=== PATIENT | male | born 1935 | race Caucasian/White ===

== ENCOUNTER → 2017-09-11 | Outpatient (CLI) | payer MEDICARE ==
[~2017-09-11] MED LIST: ASPI-555 PO; MIRALAX PO; MULT-1296 PO; PRAV40TA3 PO; REGADENOSON 0.4 MG/5 ML PF SYG IVP SCH; TAMS-1 PO
== END | disposition home or self-care (01) ==
LOC: SHCH 08:52
PROVIDERS: ATTEND Internal Medicine Cardiovascular Disease
DX: R94.31 Abnormal electrocardiogram [ECG] [EKG] (principal); R07.9 Chest pain, unspecified
CPT/HCPCS: 78452; 93017; 96374; A9500 ×2; J2785

== ENCOUNTER 2017-10-17 05:36 | Day surgery (SDC) | payer MEDICARE ==
[2017-10-15 10:45] LABS: BASOPHILS % (AUTO) 0.5 % (0.0-5.0); EOSINOPHILS % (AUTO) 0.3 % (0.0-8.0); HEMATOCRIT 44.6 % (42-54); LYMPHOCYTES % (AUTO) 30.5 % (21.0-51.0); MEAN CORPUSCULAR HEMOGLOBIN 33.6 pg (27.0-33.0); MEAN CORPUSCULAR HGB CONC 34.1 g/dL (32.0-36.0); MEAN CORPUSCULAR VOLUME 98.5 fL (79-99); MONOCYTES % (AUTO) 7.3 % (3.0-13.0); NEUTROPHILS % (AUTO) 61.4 % (40.0-77.0); PLATELET COUNT (AUTO) 164 K/uL (130-400); RED BLOOD CELL COUNT(AUTO) 4.53 MIL/uL (4.50-6.20); WHITE BLOOD COUNT (AUTO) 7.9 K/uL (4.8-10.8)
[2017-10-15 10:55] VITALS: BP 161/86
[2017-10-15 10:59] LABS: CREATININE 0.9 mg/dL (0.5-1.5)
[2017-10-15 11:26] LABS: INR 0.91 (0.85-1.15); PARTIAL THROMBOPLASTIN TIME 26.6 SEC (26.3-35.5); PROTHROMBIN TIME 9.6 SEC (9.6-11.6)
[2017-10-15 11:41] LABS: APPEARANCE,URINE Clear (CLEAR); BILIRUBIN,URINE Negative (NEGATIVE); COLOR,URINE Yellow (YELLOW); GLUCOSE, URINE (UA) Negative (NEGATIVE); KETONES,URINE Negative (NEGATIVE); LEUKOCYTE ESTERASE ,URINE Negative (NEGATIVE); NITRATE,URINE Negative (NEGATIVE); OCCULT BLOOD,URINE Negative (NEGATIVE); PROTEIN,URINE Negative (NEGATIVE)
[~2017-10-17] VITALS: Ht 172.7 cm; Wt 89.4 kg
[2017-10-17] VITALS (14 sets, daily range): BP systolic 108–171; BP diastolic 38–89
[~2017-10-17 05:36] MED LIST changes: +ACETAMINOPHEN 325 MG TAB PO PRN; -REGADENOSON 0.4 MG/5 ML PF SYG IVP SCH; +SODIUM CHLORIDE 0.9% 500ML 500 ML IV SCH
[2017-10-17] MEDS ORDERED: SODIUM CHLORIDE 0.9% 1000ML 1,000 ML IV ONE (06:17)
[2017-10-17] MEDS ORDERED: HEPARIN SODIUM 1000UNIT/ML 10ML VIAL ONE (09:06)
[2017-10-17] MEDS ORDERED: NITROGLYCERIN 5 MG/ML 10 ML VIAL IV ONE (09:06)
[2017-10-17] MEDS ORDERED: LIDOCAINE HCL-MPF 2% 5ML VIAL ONE (09:13)
[2017-10-17] MEDS ORDERED: MEPERIDINE-PF 25 MG/ML SYG ONE ×2 (09:23→09:35)
[2017-10-17] MEDS ORDERED: MIDAZOLAM HCL 1 MG/ML 2ML VIAL ONE ×2 (09:23→09:35)
[2017-10-17] MEDS ORDERED: SODIUM CHLORIDE 0.9% 1000ML 1,000 ML IV SCH (10:07)
[2017-10-17] MEDS ORDERED: ACETAMINOPHEN-CODEINE 300/30MG TAB PO PRN (10:15)
[2017-10-17] MEDS ORDERED: ISOVUE-370 50ML VIAL IV ONE (12:00)
[2017-10-17] MEDS ORDERED: ISOVUE-300 100 ML VIAL IV ONE (12:00)
== END 2017-10-17 16:07 | disposition home or self-care (01) ==
LOC: DAH 05:36
PROVIDERS: ATTEND Internal Medicine Cardiovascular Disease
DX: I25.110 Atherosclerotic heart disease of native coronary artery with unstable angina pectoris (principal); K21.9 Gastro-esophageal reflux disease without esophagitis; E78.5 Hyperlipidemia, unspecified; I44.7 Left bundle-branch block, unspecified; Z79.82 Long term (current) use of aspirin; Z79.899 Other long term (current) drug therapy; Z98.890 Other specified postprocedural states; Z82.49 Family history of ischemic heart disease and other diseases of the circulatory system; Z80.43 Family history of malignant neoplasm of testis
CPT/HCPCS: 36415; 71045; 80048; 81003; 85025; 85610; 85730; 93005; 93458; 99156; 99157; A4606; C1760; C1894; J1644; J2175 ×2; J2250 ×2; J3490 ×2; J7030; Q9967 ×2

== ENCOUNTER → 2018-10-05 | Outpatient (CLI) | payer MEDICARE ==
[~2018-10-05] MED LIST changes: -ACETAMINOPHEN 325 MG TAB PO PRN; -SODIUM CHLORIDE 0.9% 500ML 500 ML IV SCH
== END | disposition home or self-care (01) ==
LOC: SHCH 08:56
PROVIDERS: ATTEND Internal Medicine Cardiovascular Disease
DX: I08.3 Combined rheumatic disorders of mitral, aortic and tricuspid valves (principal)
CPT/HCPCS: 93306

== ENCOUNTER 2018-10-16 09:17 | Observation (INO) | payer MEDICARE ==
[2018-10-14 12:50] VITALS: BP 165/80
[2018-10-14 13:14] LABS: BASOPHILS % (AUTO) 0.3 % (0.0-5.0); EOSINOPHILS % (AUTO) 0.1 % (0.0-8.0); HEMATOCRIT 42.8 % (42-54); LYMPHOCYTES % (AUTO) 36.4 % (21.0-51.0); MEAN CORPUSCULAR HEMOGLOBIN 34.6 pg (27.0-33.0); MEAN CORPUSCULAR HGB CONC 33.6 g/dL (32.0-36.0); MONOCYTES % (AUTO) 7.6 % (3.0-13.0); NEUTROPHILS % (AUTO) 55.6 % (40.0-77.0); NUCLEATED RED BLOOD CELLS 0.1 % (0.0-0.19); PLATELET COUNT (AUTO) 177 K/uL (130-400); RED BLOOD CELL COUNT(AUTO) 4.16 MIL/uL (4.50-6.20); RED CELL DISTRIBUTION WIDTH 14.8 % (11.0-15.5); WHITE BLOOD COUNT (AUTO) 9.9 K/uL (4.8-10.8)
[2018-10-14 13:23] LABS: CREATININE 0.9 mg/dL (0.5-1.5); POTASSIUM 4.3 mmol/L (3.5-5.1)
[2018-10-14 13:27] LABS: INR 0.9 (0.85-1.15); PARTIAL THROMBOPLASTIN TIME 27.2 SEC (26.3-35.5); PROTHROMBIN TIME 9.5 SEC (9.6-11.6)
[2018-10-16] VITALS (8 sets, daily range): BP systolic 104–173; BP diastolic 62–90
[~2018-10-16] VITALS: Ht 174 cm; Wt 87.8 kg
[~2018-10-16 09:17] MED LIST changes: +CEFAZOLIN SODIUM 1 GM VIAL IVP SCH; +FINA5TAB41 PO; +SODIUM CHLORIDE 0.9% 1000ML 1,000 ML IV SCH; +[UNRECOGNIZED DRUG - OTHER] PO
--- NOTE | 2018-10-16 10:10 | NUR ---
PROCEDURE PT HERE FOR BI-V AICD INSERTION. REDNESS NOTED TO FACE. STATES HE IS VERY NERVOUS. AT BEDSIDE. DENIES ANY SOB, PAIN. AT THIS TIME.
[2018-10-16] MEDS ORDERED: CEFAZOLIN SODIUM 1 GM VIAL ONE (17:41)
[2018-10-16] MEDS ORDERED: IODIXANOL 320 MG/ML 100 ML VIAL ONE (17:41)
[2018-10-16] MEDS ORDERED: LIDOCAINE HCL 1% MDV 50ML VIAL ONE (17:43)
[2018-10-16] MEDS ORDERED: MEPERIDINE-PF 25 MG/ML SYG ONE ×3 (18:22→19:10)
[2018-10-16] MEDS ORDERED: MIDAZOLAM HCL 1 MG/ML 2ML VIAL ONE ×3 (18:22→19:10)
[2018-10-16] MEDS ORDERED: OCTYL 2-CYANOACRYLATE 1 EACH TP ONE (19:32)
[2018-10-16] MEDS ORDERED: ONDANSETRON HCL 4 MG/2 ML VIAL IV PRN (20:00)
[2018-10-16] MEDS ORDERED: FINASTERIDE 5 MG TABLET PO SCH (21:00)
--- NOTE | 2018-10-16 21:00 | NUR ---
LAWRENCE Butt was rounding in the unit and notified about pt just arrived from cathlab S/P Biventricular AICD placement per Dr. Miller.Pt. stable at this time.Will see pt later he said.
[2018-10-16] MEDS: CARVEDILOL 3.125 MG TABLET PO SCH (21:46)
[2018-10-16] MEDS: SPIRONOLACTONE 25 MG TAB PO SCH (21:46)
--- NOTE | 2018-10-16 22:00 | NUR ---
Pt. instructed about left arm precaution ,to avoid raising arm beyond shoulder.He demonstrated understanding,ice pack applied.Pt. instructed to use call light for assistance. to bedside.
[2018-10-16] MEDS ORDERED: ACETAMINOPHEN 325 MG TAB PO PRN (23:00)
[2018-10-16] MEDS ORDERED: NITROGLYCERIN 0.4 MG SL TAB SL PRN (23:00)
[2018-10-17] MEDS: ACETAMINOPHEN 325 MG TAB PO PRN ×2 (01:20→06:03)
[2018-10-17 04:00] LABS: BASOPHILS % (AUTO) 0.9 % (0.0-5.0); EOSINOPHILS % (AUTO) 0.3 % (0.0-8.0); HEMATOCRIT 38.8 % (42-54); LYMPHOCYTES % (AUTO) 28.1 % (21.0-51.0); MEAN CORPUSCULAR HEMOGLOBIN 35.9 pg (27.0-33.0); MEAN CORPUSCULAR HGB CONC 34.5 g/dL (32.0-36.0); MEAN CORPUSCULAR VOLUME 104.2 fL (79-99); NEUTROPHILS % (AUTO) 62.7 % (40.0-77.0); NUCLEATED RED BLOOD CELLS 0.1 % (0.0-0.19); PLATELET COUNT (AUTO) 132 K/uL (130-400); RED BLOOD CELL COUNT(AUTO) 3.72 MIL/uL (4.50-6.20); RED CELL DISTRIBUTION WIDTH 14.8 % (11.0-15.5); WHITE BLOOD COUNT (AUTO) 10.4 K/uL (4.8-10.8)
[2018-10-17 04:06] LABS: CREATININE 0.9 mg/dL (0.5-1.5); MAGNESIUM 2.1 mg/dL (1.80-2.40); POTASSIUM 3.9 mmol/L (3.5-5.1)
[2018-10-17 04:15] VITALS: BP 122/74
[2018-10-17] MEDS: CEFAZOLIN SODIUM 1 GM VIAL IVP SCH ×2 (04:21→11:30)
[2018-10-17] MEDS ORDERED: CARV3.1262 PO (07:22)
[2018-10-17] MEDS ORDERED: FURO20TA6 PO (07:22)
[2018-10-17] MEDS ORDERED: LOSA50TA2 PO (07:22)
[2018-10-17] MEDS ORDERED: SPIR25TA PO (07:22)
[2018-10-17 07:36] VITALS: BP 156/84
[2018-10-17] MEDS ORDERED: POLYETHYLENE GLYCOL 3350 17 GM POWD.PACK PO SCH (09:00)
[2018-10-17] MEDS ORDERED: IRON PO SCH (09:00)
[2018-10-17] MEDS ORDERED: FOLIC ACID PO SCH (09:00)
[2018-10-17] MEDS ORDERED: FUROSEMIDE 20 MG TABLET PO SCH (09:00)
[2018-10-17] MEDS ORDERED: ASPIRIN 81MG TAB.CHEW PO SCH (09:00)
[2018-10-17] MEDS ORDERED: TAMSULOSIN HCL 0.4 MG CAP.ER.24H PO SCH (09:00)
[2018-10-17] MEDS ORDERED: MULTIVITAMIN PO SCH (09:00)
[2018-10-17] MEDS ORDERED: FAMOTIDINE 20MG TAB 20 MG TAB PO SCH (09:00)
[2018-10-17] MEDS ORDERED: [UNRECOGNIZED DRUG - OTHER] PO PRN (09:00)
[2018-10-17] MEDS ORDERED: LOSARTAN 50 MG TABLET PO SCH (09:00)
[2018-10-17] MEDS: CARVEDILOL 3.125 MG TABLET PO SCH (09:51)
[2018-10-17] MEDS: SPIRONOLACTONE 25 MG TAB PO SCH (09:52)
[2018-10-17 11:18] VITALS: BP 97/61
[2018-10-17] MEDS ORDERED: Pravastatin Sodium 40 MG PO SCH (21:00)
== END 2018-10-17 13:34 | disposition home or self-care (01) ==
LOC: DAH 09:17 → 2AH 09:18 → DAH 09:18
PROVIDERS: ADMIT Internal Medicine; ATTEND Internal Medicine
DX: I42.0 Dilated cardiomyopathy (principal); I44.7 Left bundle-branch block, unspecified; I95.9 Hypotension, unspecified; E78.5 Hyperlipidemia, unspecified; I25.10 Atherosclerotic heart disease of native coronary artery without angina pectoris; I50.42 Chronic combined systolic (congestive) and diastolic (congestive) heart failure; K21.9 Gastro-esophageal reflux disease without esophagitis; N40.0 Benign prostatic hyperplasia without lower urinary tract symptoms; G20 Parkinson's disease; Z83.3 Family history of diabetes mellitus; Z96.653 Presence of artificial knee joint, bilateral; Z95.810 Presence of automatic (implantable) cardiac defibrillator; Z82.49 Family history of ischemic heart disease and other diseases of the circulatory system; Z79.899 Other long term (current) drug therapy
CPT/HCPCS: 33225; 33249; 36415 ×2; 71046; 80048 ×2; 83735; 85025 ×2; 85610; 85730; 93005 ×2; 96374; 96376; A4606; C1769 ×2; C1882; C1894; C1895 ×2; C1900; G0378 ×18; J0690 ×3; J2175 ×3; J2250 ×3; J3490; J7030; Q9967; 99156; 99157

== ENCOUNTER → 2019-07-16 | Outpatient (CLI) | payer MEDICARE ==
[~2019-07-16] MED LIST changes: +CARV3.1262 PO; -CEFAZOLIN SODIUM 1 GM VIAL IVP SCH; +FURO20TA6 PO; +LOSA50TA2 PO; -SODIUM CHLORIDE 0.9% 1000ML 1,000 ML IV SCH; +SPIR25TA PO
== END | disposition home or self-care (01) ==
LOC: SHCH 13:02
PROVIDERS: ATTEND Internal Medicine Cardiovascular Disease
DX: I42.0 Dilated cardiomyopathy (principal)
CPT/HCPCS: 93306